=== PATIENT | male | born 1930 ===

== ENCOUNTER 2018-01-30 21:12 | Emergency (ER) | payer OTHER ==
[~2018-01-30] VITALS: Ht 165.1 cm; Wt 68.0 kg
[~2018-01-30 21:12] MED LIST: FLONASE16 GM NS; [UNRECOGNIZED DRUG - OTHER]
== END 2018-01-30 22:06 | disposition home or self-care (01) ==
LOC: ER 21:12
DX: K94.29 Other complications of gastrostomy (principal); Z43.1 Encounter for attention to gastrostomy